=== PATIENT | male | born 1980 | race Caucasian/White ===

== ENCOUNTER 2017-04-01 21:28 | Emergency (ER) | payer OTHER ==
[2017-04-01 21:40] VITALS: BP 113/65; PULSE 72; TEMP 97.9; BMI 21.7
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
== END 2017-04-01 22:22 | disposition home or self-care (01) ==
LOC: SUPCPDRO 21:28 → JERFT 21:28
DX: S39.012A Strain of muscle, fascia and tendon of lower back, initial encounter (principal); S16.1XXA Strain of muscle, fascia and tendon at neck level, initial encounter; V43.52XA Car driver injured in collision with other type car in traffic accident, initial encounter; Y92.411 Interstate highway as the place of occurrence of the external cause; Y93.89 Activity, other specified; Y99.8 Other external cause status
CPT/HCPCS: 99281-25